=== PATIENT | female | born 1995 | race African-American/Black ===

== ENCOUNTER 2016-11-16 19:53 | Emergency (ER) | payer SELFPAY ==
--- NOTE | 2016-11-16 21:49 | ER Document Report ---
ED Medical Screen (RME) - General Stated Complaint: HEARING LOSS Notes: Patient complains of hearing loss,, blurry vision, feeling like her brain is in a fog, trouble concentrating, and loss of balance since Saturday. Does have nasal congestion. Complains of urinary frequency since Saturday. Denies fever. Complains of nausea, but no vomiting or diarrhea. I have greeted and performed a rapid initial assessment of this patient. A comprehensive ED assessment and evaluation of the patient, analysis of test results and completion of the medical decision making process will be conducted by additional ED providers. - Related Data Allergies/Adverse Reactions: No Known Allergies Allergy (Verified 11/16/16 21:45) Past Medical History - Immunizations Immunizations up to date: Yes Physical Exam - Vital signs Vitals: Temp Pulse Resp BP Pulse Ox 97.6 F 69 20 133/88 H 100 11/16/16 21:04 11/16/16 21:04 11/16/16 21:04 11/16/16 21:04 11/16/16 21:04 - Respiratory Respiratory status: No respiratory distress Breath sounds: Normal Course - Vital Signs Vital signs: Temp Pulse Resp BP Pulse Ox 97.6 F 69 20 133/88 H 100 11/16/16 21:04 11/16/16 21:04 11/16/16 21:04 11/16/16 21:04 11/16/16 21:04
--- NOTE | 2016-11-17 01:44 | ER Document Report ---
HPI - HPI Patient complains to provider of: right ear fullness, left face twitch, sinus congestion Onset: Yesterday Onset/Duration: Gradual Pain Level: 3 Context: 21-year-old female complaining of left inferior orbit twitching, sinus pressure and congestion, allergy symptoms, clogged right ear since yesterday. Some postnasal drip. No cough. No fever. Associated Symptoms: None Exacerbated by: Denies Relieved by: Denies Similar symptoms previously: No Recently seen / treated by doctor: No - ROS ROS below otherwise negative: Yes Systems Reviewed and Negative: Yes All other systems reviewed and negative - REPRODUCTIVE Reproductive: DENIES: : - DERM Skin Color: Normal, [place] Past Medical History - General Information source: Patient - Social History Smoking Status: Never Smoker Chew tobacco use (# tins/day): No Frequency of alcohol use: None Drug Abuse: None Lives with: Parents Family History: Reviewed & Not Pertinent - Medical History Medical History: Negative Renal/ Medical History: Denies: Hx Peritoneal Dialysis Surgical Hx: Negative - Immunizations Immunizations up to date: Yes Vertical Provider Document - CONSTITUTIONAL Agree With Documented VS: Yes Exam Limitations: No Limitations - INFECTION CONTROL TRAVEL OUTSIDE OF THE [place] IN LAST 30 DAYS: No - HEENT HEENT: Normocephalic, PERRLA. negative: Conjuctival Injection, Pharyngeal Erythema Notes: boggy nares., Cerumen impaction right ear canal - NECK Neck: Supple. negative: Lymphadenopathy-Left, Lymphadenopathy-Right - RESPIRATORY Respiratory: Breath Sounds Normal, No Respiratory Distress O2 Sat by Pulse Oximetry: 100 - CARDIOVASCULAR Cardiovascular: Regular Rate, Regular Rhythm - GI/ABDOMEN Gastrointestinal: Abdomen Soft, Abdomen Non-Tender - MUSCULOSKELETAL/EXTREMETIES Musculoskeletal/Extremeties: LORNA GOODWIN - NEURO Level of Consciousness: Awake, Alert - DERM Integumentary: Warm, Dry, No Rash Course - Re-evaluation Re-evalutation: 11/17/16 04:19 test is negative and urinalysis shows tr bacteria, 22 wbc, urine culture added. I suspect the urine culture to be negative she has no symptoms of cystitis. right tm normal after irrigation - Vital Signs Vital signs: Temp Pulse Resp BP Pulse Ox 97.6 F 69 20 133/88 H 100 11/16/16 21:04 11/16/16 21:04 11/16/16 21:04 11/16/16 21:04 11/16/16 21:04 Discharge - Discharge Clinical Impression: resolved cerumen impaction right ear, vertigo after ear irrigation Upper respiratory infection Qualifiers: URI type: unspecified viral URI Qualified Code(s): J06.9 - Acute upper respiratory infection, unspecified Condition: Good Disposition: HOME, SELF-CARE Instructions: Acetaminophen, Upper Respiratory Illness ([facility]), Vertigo ([facility]), Cerumen Impaction ([facility]), Use of Diphenhydramine Additional Instructions: Nasal saline spray 4 times a day [id number] earwax remover to get the rest of the wax out of her right ear canal Antihistamines for your allergies and may help the nasal symptoms Return to the emergency room if worse Please complete the patient satisfaction survey if you get one, and return it.. If you do not receive a survey, then you can go to the [facility] website, [email or web address] and place your comments about your very good care. Thank you very much. It was a pleasure being your medical provider today. Forms: Return to Work Referrals: FRED PERRIN MD [Primary Care Provider] - Follow up as needed
[2016-11-17] MEDS ORDERED: DOCUSATE SODIUM 100 MG CAPSULE RT_EAR ONE (01:59)
[2016-11-17 02:11] LABS: BILIRUBIN,URINE NEGATIVE (NEGATIVE); CALCIUM OXALATE CRYSTALS,URINE MANY /HPF; GLUCOSE, URINE NEGATIVE (NEGATIVE); KETONES,URINE TRACE mg/dL (NEGATIVE); LEUKOCYTE ESTERASE,URINE MODERATE (NEGATIVE); NITRITE,URINE NEGATIVE (NEGATIVE); PROTEIN,URINE 30 mg/dL (NEGATIVE); URINE SPECIFIC GRAVITY 1.031; UROBILINOGEN,URINE NEGATIVE mg/dL (<2.0)
[2016-11-17 02:12] LABS: APPEARANCE,URINE SLIGHTLY-CLOUDY
[2016-11-17] MEDS ORDERED: MECLIZINE HCL 25 MG TABLET PO ONE (04:16)
[2016-11-17 04:30] VITALS: BP 132/80
== END 2016-11-17 04:30 | disposition home or self-care (01) ==
LOC: ER 19:53
DX: H61.21 Impacted cerumen, right ear (principal); J06.9 Acute upper respiratory infection, unspecified; R42 Dizziness and giddiness; R25.3 Fasciculation; R09.81 Nasal congestion; R09.82 Postnasal drip
CPT/HCPCS: 81001; 81025; 87086; 99283